=== PATIENT | male | born 1985 | race Asian ===

== ENCOUNTER 2022-05-05 10:26 | Emergency (ER) | payer OTHER, SELFPAY ==
[2022-05-05 10:38] VITALS: BP 131/86; PULSE 65; RESP 16; TEMP 36.6; O2SAT 99
--- NOTE | 2022-05-05 11:00 | DI.RAD_ITS ---
Exam(s) XR HEEL LT OS CALCIS EXAM: XR HEEL LT OS CALCIS CLINICAL HISTORY: pain laterally, inverted 3 days ago. TECHNIQUE: 2D digital imaging was performed. COMPARISON: No exams were available for comparison FINDINGS: 3 views No evidence of calcaneus fracture, including the anterior process. No radiopaque foreign body. No evidence of osteomyelitis. There is a small density behind the talus measuring by 2 millimeters. Given the history here this ma y represent a loose body in the posterior aspect of the ankle joint. There does not appear to be an obvious defect in the adjacent parent bone. In addition, on the lateral view there is a small subtle 1 millimeter calcific density noted in the a nterior aspect of the tibiotalar joint, possibly significant. IMPRESSION: Calcific densities posterior to the ankle joint and anterior ankle joint, as described above. DATA REPOSITORY: RADIATION DOSE DELIVERED:
--- NOTE | 2022-05-05 11:11 | ED.GENADUL_ITS ---
Discharge Plan Disposition Patient Disposition: Home Discharge Details Clinical Impression: Left ankle sprain ED Provider: Nicolas Mckeon Home Meds and New Rx's Prescriptions: No Action No Known Home Meds Discharge Instructions Instructions: Ankle Sprain (ED) Additional Instructions: Please use lace up ankle stabilizer and crutches for the next 1 to 2 weeks. You can bear weight as tolerated. Please take ibuprofen over the counter. Take 600mg by mouth every 6 hours as needed for pain. Please contact your primary care physician to arrange follow-up. Return to the ER immediately for any worsening or new concerning symptoms. Discharge Data Discharge Date/Time-TO BE ENTERED AT DEPARTURE: 05/05/22 14:03 Medical Decision Making 1115 -- 36-year-old male here 3 days after inversion injury stepping off a ladder with pain in his left ankle and lateral foot over calcaneus, worse with ambulation patient is most tender over proximal calcaneus just distal to the fibula. Suspect calcaneal fracture. Plan to obtain x-ray images. I offered ibuprofen and patient declined. -- X-ray of the ankle and calcaneus interpreted by radiology: No ankle fracture. No evidence of calcaneus fracture, including the anterior process.? No radiopaque foreign body.? No evidence of osteomyelitis. There is a small density behind the talus measuring by 2 millimeters.? Given the history here this may represent a loose body in the posterior aspect of the ankle joint.? There does not appear to be an obvious defect in the adjacent parent bone. In addition, on the lateral view there is a small subtle 1 millimeter calcific density noted in the anterior aspect of the tibiotalar joint, possibly s ignificant. IMPRESSION: Calcific densities posterior to the ankle joint and anterior ankle joint, as described above. Given inconclusive plain film, CT of the left distal lower extremity was obtained and interpreted by radiology: FINDINGS: There is no evidence of acute fracture nor widening of the ankle mortise.? Talar dome unremarkable.? Malleoli are intact including the posterior malleolus. There are 2 tiny adjacent 1 millimeter os ossific densities in the anterior aspect of the ankle-tibiotalar joint.? There appears to be a small tibiotalar joint effusion.? There does not appear to be an obvious defect in the adjacent parent bones of the anterior tibial plafond and anterior aspect of the talus. No malleolar fractures evident.? No fracture of the anterior process of the calcaneus.? The finding described posteriorly on the plain films appears corticated and does not have the appearance of an acute fracture fragment. No evidence of osseous tarsal coalition. IMPRESSION: Findings as above but no acute fractures identified.? Suspect sprain. Lace up ankle stabilizer and crutches recommended. Patient provided informed refusal of crutches. Usual customary discharge instructions reviewed with the patient. HPI General Mode of arrival: ambulatory . Date/Time Provider Initiated Documentation: 05/05/22 10:47 . Limitations to Documentation: no limitations . Information obtained by: patient . HPI Narrative: 36-year-old male presents with chief complaint of left ankle pain. Patient notes 3 days ago he stepped off a ladder about 3 feet down and landed on a stone and inverted his left ankle. He has had pain in the ankle since this injury. Pain is worse with ambulation. Pain localized laterally. No other injury sustained. Related Data Home Medications Medication Instructions Recorded Confirmed Unknown [No Known Home Meds] 05/05/22 05/05/22 Allergies Allergy/AdvReac Type Severity Reaction Status Date / Time No Known Allergies Allergy Unverified 05/05/22 10:44 General Stated Complaint: Orthopedic CHAYO: 4 Review of Systems Musculoskeletal Musculoskeletal: Reports as per HPI PFS All Active Problems (Updated 05/05/22 @ 13:43 by Nicolas Mckeon MD) Left ankle sprain (Acute) Social History Smoking/Tobacco Use Status: Current every day Tobacco Type: e-cigarettes Smoking risk assessment performed?: Yes Alcohol Intake: current Alcohol Intake frequency: holidays/special occasions only Drug use: Never Substance use type: does not use Do you feel safe at home: Yes Do you feel safe in your relationship?: Yes Exam Extrem Left lower extremity: lower leg Details: no tenderness, ankle Details: tenderness Location: of the lateral malleolus and foot Details: tenderness Location: of the calcaneus; not of the base of the 5th metatarsal Other: Distal motor and sensation intact, 2+ DP Course Vital Signs Vital signs: Vital Signs Temperature 36.6 C 05/05/22 10:38 Pulse 65 05/05/22 10:38 Respiratory Rate 16 05/05/22 10:38 Blood Pressure 131/86 05/05/22 10:38 Pulse Oximetry 99 05/05/22 10:38 Temperature 36.6 C 05/05/22 10:38 Temperature Source Tympanic 05/05/22 10:38 Pulse 65 05/05/22 10:38 Respiratory Rate 16 05/05/22 10:38 Respiratory Effort Normal 05/05/22 10:41 Blood Pressure 131/86 05/05/22 10:38 Blood Pressure Position Sitting 05/05/22 10:38 Pulse Oximetry 99 05/05/22 10:38 Oxygen Delivery Method Room Air 05/05/22 10:38 Oxygen Flow Rate 0 05/05/22 10:38 Pain Level 7 05/05/22 10:38 PAWSS Have you Been Recently Intoxicated or Drunk Within the Last 30 days?: No Have you Ever Experienced Previous Episodes of Alcohol Withdrawal?: No Have you ever Experienced Withdrawal Seizures?: No Have you ever Experienced Delirium Tremens(DT)s?: No Have you ever undergone Alcohol Rehabilitation Treatment (i.e, inpt ot outpatient treatment programs)?: No Have you ever Experienced Blackouts?: No Have you ever Combined Alcohol with other Downers within the last 90 days?: No Have you ever Combined Alcohol with any other Substance of Abuse during the last 90 days?: No Result: 0
--- NOTE | 2022-05-05 11:38 | DI.RAD_ITS ---
Exam(s) XR ANKLE LT COMPLETE EXAM: XR ANKLE LT COMPLETE CLINICAL HISTORY: pain laterally, inverted 3 days ago. TECHNIQUE: 2D digital imaging was performed. COMPARISON: No exams were available for comparison FINDINGS: 3 views No evidence of acute fracture or widening of the ankle mortise. Talar dome is unremarkable. Malleol i unremarkable. Small os trigonum noted posteriorly. IMPRESSION: No acute osseous findings. DATA REPOSITORY: RADIATION DOSE DELIVERED:
--- NOTE | 2022-05-05 12:00 | DI.CT_ITS ---
Exam(s) CT LOWER EXTREMITY LT WO EXAM: CT LOWER EXTREMITY LT WO CLINICAL HISTORY: heel pain, tender laterally. TECHNIQUE: Imaging Protocol: Axial computed tomography images with coronal and sagittal reformatted images were created and reviewed. CONTRAST MATERIAL: Intravenous: Omnipaque 350 Contrast volume:structured data in ml Contrast route:I V - Oral: yes / no COMPARISON: No exams were available for comparison FINDINGS: There is no evidence of acute fracture nor widening of the ankle mortise. Talar dome unremarkable. Malleoli are intact including the posterior malleolus. There are 2 tiny adjacent 1 millimeter os ossific densities in the anterior aspect of the ankle-tibio talar joint. There appears to be a small tibiotalar joint effusion. There does not appear to be an obvious defect in the adjacent parent bones of the anterior tibial plafond and anterior aspect of the talus. No malleolar fractures evident. No fracture of the anterior process of the calcaneus. The finding d escribed posteriorly on the plain films appears corticated and does not have the appearance of an acu te fracture fragment. No evidence of osseous tarsal coalition. IMPRESSION: Findings as above but no acute fractures identified. Called by myself to ER provider. RADIATION DOSE DELIVERED: 477.16mGy.cm Total DLP DATA REPOSITORY: All CT scans at this facility are submitted to the National Radiology Data Registry (NRDR) Dose Index Registry (DIR) with the [employer] ([employer]). RADIATION OPTIMIZATION: All CT scans at this facility use at least one of these dose optimization te chniques: automated exposure control; mA and/or kV adjustment per patient size (includes targeted exa ms where dose is matched to clinical indication); or iterative reconstruction.
== END 2022-05-05 14:03 | disposition home or self-care (01) ==
PROVIDERS: Emergency Provider Student in an Organized Health Care Education/Training Program
DX: S93.402A Sprain of unspecified ligament of left ankle, initial encounter (principal); X58.XXXA Exposure to other specified factors, initial encounter
CPT/HCPCS: 29515; 99283; 73610; 73650; 73700